=== PATIENT | male | born 1955 | race Caucasian/White ===

== ENCOUNTER 2022-07-11 13:49 | Outpatient (RCR) | payer OTHER, SELFPAY ==
--- NOTE | 2022-07-11 14:47 | PTOPEVAL1 ---
Assessment and note entered by Mason Butler Evaluation Information Assessment Status Evaluation Diagnosis s/p right shoulder arthroplasty Onset 05/16/22 Subjective Information Pt. reports that he was in a sling for 7 weeks following surgery. He reports that he removed the sling about 2 weeks ago. Pt. reports having no pain at rest. He does not slight pain with movement. Pt. reports that he is having difficulty with raising his arm. He states that prior to surgery he could only move the right arm slightly and would have to assist the arm on occasion. He reports that his goal is to be able to use the right arm to comb his hair and reach above his head. Reported Pain Level Pain Score 0: Self Report Assessment PT Clinical Summary Pt. is a 66 year old male approximately 2 months post right reverse shoulder arthroplasty. He presents with impaired u.e. strength, impaired ROM and pain. Continued treatment is indicated in order to improve these areas to allow the pt. to be able to utilize the right u.e. more effieicently with ADL performance. Plan of Care Interventions Electrical Stimulation,Hot Pack/Cold Pack,Manual Therapy,Therapeutic Activities,Therapeutic Exercise,Self-Care/Home Management PT Services Indicated Yes Treatment Frequency and 3x/week x 12 visits Duration These treatments will address the objective and functional deficits as defined above. The patient will be advanced safely and appropriately in order for the patient to progress towards his/her prior level of function. Additional exercises will be introduced and as well as a comprehensive home exercise program upon discharge, if needed, ?to ensure carryover of functional gains achieved in the clinic. This treatment plan has been reviewed and agreement upon by the patient.
--- NOTE | 2022-08-04 16:28 | PTOPPROG ---
Assessment and note entered by JT File, PT Evaluation Information Assessment Status Progress Diagnosis s/p right shoulder arthroplasty Onset 05/16/22 Subjective Information patient reports he no longer has pain in the R shoulder. however, he reports the shoulder continues to be weak and he is unable to lift the arm up away from his body. he reports he has not be able to shave due to the weakness. Assessment PT Clinical Summary mr. montejo presents to skilled PT services for his 10th skilled therapy visit this date. he presents today with continued deficits in R shoulde earlene dn strength. however, he is improved since his initial evaluation. due to complexity of his case, and expected longer than normal return to function times, it is in his benefit to continue skilled PT with focus on further aarom, arom, and strengthening to improve shoulder/UE function. as of this date, he has met goals for pain and HEP performance. he is progressing towards all other goals thus far. Plan of Care Interventions Manual Therapy,Neuro Re-education,Patient/ Caregiver Educati,Therapeutic Activities, Therapeutic Exercise PT Services Indicated Yes Treatment Frequency and continue skilled PT 1 more time this week, then 2x Duration weekly for 4 more visits (total of 5 visits after today) These treatments will address the objective and functional deficits as defined above. The patient will be advanced safely and appropriately in order for the patient to progress towards his/her prior level of function. Additional exercises will be introduced and as well as a comprehensive home exercise program upon discharge, if needed, ?to ensure carryover of functional gains achieved in the clinic. This treatment plan has been reviewed and agreement upon by the patient.
--- NOTE | 2022-08-19 16:01 | PTOPREEVAL ---
Assessment and note entered by JT File, PT Evaluation Information Assessment Status Re-evaluation Diagnosis s/p right shoulder arthroplasty Onset 05/16/22 Subjective Information patient reports he feels pretty good today. he reports no pain at rest in the R shoulder. he reports he is still unable to lift the R arm to use it for self care or activities at home, but reports his active mobility is improved. Reported Pain Level Pain Score 0: Self Report Assessment PT Clinical Summary mr. montejo presents to skilled PT services for continued weakness, decreased rom, and decreased functional use of the R UE following R TSA. he has made progress in arom and strength of the R shoulder, but continued to lack achievement of goals or improved functional use of the R arm at home. he would do well to continue skilled PT with focus on continued strengthening, rom, and functional reaching/lifting activities to improve his independence and performance with self care and ADL's. Plan of Care Interventions Manual Therapy,Neuro Re-education,Patient/ Caregiver Educati,Therapeutic Activities, Therapeutic Exercise PT Services Indicated Yes Treatment Frequency and continue skilled PT 2x weekly for 8 more visits Duration These treatments will address the objective and functional deficits as defined above. The patient will be advanced safely and appropriately in order for the patient to progress towards his/her prior level of function. Additional exercises will be introduced and as well as a comprehensive home exercise program upon discharge, if needed, ?to ensure carryover of functional gains achieved in the clinic. This treatment plan has been reviewed and agreement upon by the patient.
== END 2022-08-19 23:59 | disposition home or self-care (01) ==
LOC: CHSPT 13:49
DX: Z48.89 Encounter for other specified surgical aftercare (principal)
CPT/HCPCS: 97014; 97110; 97161; G0283

== ENCOUNTER 2023-06-21 08:40 | Emergency (ER) | payer MEDICARE, SELFPAY ==
[2023-06-21 08:40] VITALS: BP 147/103; PULSE 106; RESP 20; TEMP 37.1; O2SAT 97
[2023-06-21 08:56] VITALS: BP 138/102; PULSE 110; RESP 18; O2SAT 97
--- NOTE | 2023-06-21 09:14 | ED.MALEGU ---
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 -- Suprapubic pain/heaviness. No chills or rigors. -- He feels that the bladder is not being appropriately emptied by the Parker's catheter. A bladder scan revealed 51 cc of urine. Onset (ago): day(s) ( Started 1 day ago.) Duration: intermittent Location: abdomen ( Suprapubic region.) Radiation: abdomen Severity: moderate Quality: aching Relieving factors: none Exacerbating factors: none Associated symptoms: Reports denies other symptoms Related Data Allergies Allergy/AdvReac Type Severity Reaction Status Date / Time codeine Allergy Unknown Skin Verified 06/21/23 08:52 irritation Review of Systems Review of Systems: Blood pressure is stable. Temperature of 37.1?. All systems reviewed & are unremarkable except as noted in HPI and below Constitutional: Constitutional: Reports as per HPI and Reports no additional constitutional complaints Eyes: Eyes: Reports as per HPI and Reports no additional eye complaints ENT: Reports system reviewed and no additional complaints, except as documented Cardiovascular: Cardiovascular: Reports as per HPI and Reports no additional cardiovascular complaints Respiratory: Respiratory: Reports as per HPI and Reports no additional respiratory complaints Gastrointestinal: Gastrointestinal: Reports as per HPI and Reports no additional gastrointestinal complaints Genitourinary: Comments: Chronic for his catheter which pain on pavithra the bladder and possible retention of urine. Musculoskeletal: Comments: Chronic pain In multiple places Integumentary/Breasts: Skin/Breast: Reports system reviewed and no additional complaints, except as docu Neurologic: Comments: bilateral arm and leg weakness. Nonambulatory. Psychiatric: Psychiatric: Reports no additional psychiatric complaints Endocrine: Endocrine: Reports no additional endocrine complaints Hematologic/Lymphatic: Hematologic/Lymphatic: Reports no additional hematologic/lymphatic complaints Allergic/Immunologic: Allergic/Immunologic: Reports no additional allergic/immunologic complaints [facility] Past Medical History Medical History (Updated 06/21/23 @ 10:29 by Junaid Robles MD) Bipolar 1 disorder, depressed, mild Cervical myelopathy Dyslipidemia Hypothyroidism Lumbar stenosis Prostate cancer Family History Family History (Updated 09/14/18 @ 16:10 by DOCTOR UNKNOWN) Mother Diabetes mellitus Social History Social History Smoking status: Heavy tobacco smoker Alcohol intake: current Exam Const: General: cooperative and healthy appearing HENMT: Head: normal to inspection Ears: hearing grossly normal bilaterally Face/Nose/Sinus: Normal external nose present Face and sinus: normal facial exam Mouth: Yes Normal oral and palatal mucosa present, Yes lip normal and Yes tongue normal Throat: posterior oropharynx normal Eyes: General: appearance normal, both eyes and all related structures Conjunctivae: conjunctivae normal Sclera: sclerae normal Cornea: corneas normal Pupils: Equal, round and reactive pupils present EOM: EOMs intact bilaterally Neck: Neck: normal visual inspec
--- NOTE | 2023-06-21 09:33 | PC.NURSE ---
labs obtained by blood draw in foot. Patient had a lot of reconstructive surgery on arms, so he requested to have blood drawn from foot. ERP ok with draw site.
[2023-06-21 09:39] LABS: Appearance Urine Cloudy (Clear); Basophils Absolute Auto 0.01 K/mm3 (0.00-0.10); Basophils Percent Auto 0.1 % (0.0-1.0); Bilirubin Urine Negative (Negative); Blood Urine 3+ (Negative); Eosinophils Percent Auto 3.3 % (1.0-6.0); Glucose Urine UA Negative (Negative); Hematocrit 41.2 % (37.0-46.0); Hemoglobin 13.6 g/dL (12.4-15.3); Immature Granulocyte Absolute 0.05 K/mm3 (0.00-0.00); Immature Granulocyte Percent A 0.5 % (0.0-0.0); Ketones Urine 2+ (Negative); Leukocyte Esterase Ur 3+ LEU/UL (Negative); Lymphocytes Absolute Auto 0.16 K/mm3 (1.10-4.50); Lymphocytes Percent Auto 1.8 % (18.0-42.0); Mean Corpuscular Hemoglobin 30.9 pg (27.0-31.0); Mean Corpuscular Volume 93.6 fL (78.0-102.0); Mean Platelet Volume 9.5 fl (8.7-11.0); Monocytes Absolute Auto 0.47 K/mm3 (0.10-0.90); Monocytes Percent Auto 5.1 % (2.0-11.0); Neutrophils Absolute Auto 8.1 K/mm3 (1.7-7.2); Neutrophils Percent Auto 89.2 % (50.0-70.0); Nitrate Urine Positive (Negative); Platelet Count Result 180 K/mm3 (150-420); Protein Urine 2+ (Negative); Red Cell Distribution Width 13.7 % (11.6-14.4); Specific Grav Ur 1.025 (1.010-1.020); Urobilinogen Urine 0.2 mg/dL (0.2-1.0); White Blood Count 9.1 K/mm3 (4.8-10.8); pH Urine 5.5 (5.0-8.0)
[2023-06-21 09:55] LABS: Add Urine Microscopic? YES; Alanine Aminotransferase 34 U/L (16-63); Albumin Level 3.3 g/dL (3.4-5.0); Alkaline Phosphatase 110 U/L (46-116); Anion Gap 9 mmol/L (8-16); Aspartate Amino Transferase 20 U/L (15-37); Bacteria Urine 3+ /hpf; Bilirubin,Total 0.6 mg/dL (0.00-1.00); Blood Urea Nitrogen 13 mg/dL (7-18); Carbon Dioxide 28 mmol/L (21-32); Chloride 105 mmol/L (98-108); Color Urine Yellow (Yellow); Estimated CRCL calculation 86 ml/min; Estimated Glomerular Filt Rate > 60; Glucose 107 mg/dL (70-99); Osmolality Calculated 294 mOsm/kg (285-295); Potassium 3.5 mmol/L (3.5-5.1); Sodium 142 mmol/L (136-145); Squamous Epithelial Cell Urine Rare /hpf (Few); Total Protein 6.8 g/dL (6.4-8.2); WBC Urine >75 /hpf (0-3)
[2023-06-21 10:10] LABS: Lactic Acid Reflex 0.7 mmol/L (0.4-2.0)
[2023-06-21 10:58] VITALS: BP 121/71; PULSE 106; RESP 18; TEMP 36.6; O2SAT 98
--- NOTE | 2023-06-28 18:41 | PC.NURSE ---
urine culture reviewed. given to dr jarvis to review. augmentin rx given is resistant. awaiting new order.
--- NOTE | 2023-06-28 18:45 | PC.NURSE ---
call placed to [facility], new rx for KEFLEX 500MG X1 TAB TID FOR 10 DAYS.
--- NOTE | 2023-06-28 18:49 | PC.NURSE ---
PT NOTIFIED PER PHONE OF NEED TO CHANGE ANTIBIOTIC. SPOKE WITH PT MULTICRAFT OPERATOR YEIMY FERNANDO. VOICED UNDERSTANDING TO ELECTRIC DISTRIBUTION ENGINEER AT [facility]. OPEN TIL 8PM TONIGHT OR IN THE MORNING.
--- NOTE | 2023-07-02 13:59 | PC.NURSE ---
final urine culture report reviewed. gram negative bacilli isolated. pt prescribed augmentin and pyridium at discharge. erp dr giraldo reviewed and approved rx as appropriate. no change in plan of care.
== END 2023-06-21 11:00 | disposition home or self-care (01) ==
PROVIDERS: Emergency Provider Internal Medicine Critical Care Medicine
DX: N30.00 Acute cystitis without hematuria (principal); E78.5 Hyperlipidemia, unspecified; E03.9 Hypothyroidism, unspecified; F17.200 Nicotine dependence, unspecified, uncomplicated; Z85.46 Personal history of malignant neoplasm of prostate
CPT/HCPCS: 36415; 80053; 81001; 83605; 85025; 87077; 87086; 87088; 87186; 99283

== ENCOUNTER 2023-06-22 13:33 | Emergency (ER) | payer MEDICARE, SELFPAY ==
[2023-06-22 13:36] VITALS: BP 142/114; PULSE 93; TEMP 36.5; O2SAT 96
--- NOTE | 2023-06-22 13:58 | ED.MALEGU ---
HPI - Male Genitourinary General Chief complaint: Urogenital-Male Stated complaint: leaking catheter Time Seen by Provider: 06/22/23 13:55 Source: patient Mode of arrival: wheelchair History of Present Illness HPI Narrative: 67-year-old male presents with a history of prostate cancer with radiation treatments as a chronic Parker was seen here yesterday in and had a leaky catheter that was replaced and started on antibiotics. Patient presents again today with leaking catheter stating that there was not enough saline in the the balloon. Patient has a history of myelopathy and lumbar stenosis is in a wheelchair in being treated for prostate cancer. Currently on antibiotics with no fever chills no suprapubic tenderness no flank pain. Onset (ago): day(s) Duration: constant Related Data Allergies Allergy/AdvReac Type Severity Reaction Status Date / Time codeine Allergy Unknown Skin Verified 06/21/23 08:52 irritation Review of Systems Review of Systems: All systems reviewed & are unremarkable except as noted in HPI and below PMFSH Past Medical History Medical History Bipolar 1 disorder, depressed, mild Cervical myelopathy Dyslipidemia Hypothyroidism Lumbar stenosis Prostate cancer Family History Family History Mother Diabetes mellitus Social History Social History Smoking status: Heavy tobacco smoker Alcohol intake: current Exam Const: General: no acute distress Nutritional Appearance: well nourished Limitations: no limitations Neck: Neck: normal visual inspection Chest: Chest palpation & inspection: normal inspection of the chest Resp: Effort & Inspection: normal respiratory effort Auscultation: clear to auscultation bilaterally Cardio: Rate: regular rate Rhythm: regular rhythm GI: GI Palp: Yes Soft to palpation Auscultation: normal bowel sounds : Other: Has a Parker catheter that has been leaking around the insertion site and a full 15mL of saline was placed in the the balloon holding the catheter in place. Urinary Catheter: Urinary Catheter: patent and draining Back/Spine/Pelvis: Back: no CVA tenderness Skin: General skin exam: normal color Rashes: no rashes Neuro: General: patient oriented x3 Extrem: General: normal to inspection Psych: Mental Status: mental status grossly normal Affect: normal affect Course Course Emergency Course: Patient with a Parker catheter that is leaking around the insertion site and a full 15mL was placed in the balloon to help prevent any leakage, advised patient to follow with his primary our urologist if symptoms persist or worsen. Vital Signs Vital signs: Vital Signs Temperature 36.5 C 06/22/23 13:36 Pulse Rate 93 06/22/23 13:36 Blood Pressure 142/114 H 06/22/23 13:36 Pulse Oximetry 96 06/22/23 13:36 Oxygen Delivery Room Air 06/22/23 13:36 Temperature 36.5 C 06/22/23 13:36 Pulse Rate 93 06/22/23 13:36 Blood Pressure 142/114 H 06/22/23 13:36 Pulse Oximetry 96 06/22/23 13:36 Oxygen Delivery Room Air 06/22/23 13:36 Critical Care Time Critical Care Time Critical Care Time: No Discharge Plan Discharge Clinical Impression: Complication of Parker catheter Patient Disposition: Home, Self-Care Condition: Stable Instructions: Antibiotic Form, Parker Catheter Placement and Care (ED) Additional Instructions: advised patient if symptoms persist should follow with his primary at the [place]. Prescriptions: No Action amoxicillin-pot clavulanate 875-125 mg tablet 1 tablet PO Q12H Qty: 14 0RF phenazopyridine [Pyridium] 200 mg tablet 200 mg PO TID PRN (Reason: pain) Qty: 14 0RF Follow-up/Referrals: UNKNOWN,DOCTOR [Primary Care Provider] - Time of Disposition: 14:04
--- NOTE | 2023-06-22 14:01 | PC.NURSE ---
pt declined changing fraser, I just need more saline in the balloon . balloon deflated with 10ml. replaced with 15 ml of saline. pt informed should not have to push and bear down to urinate. pt states that is when it is leaking. explained bulb can only be inflated so much. if returns again will need to have new cath inserted. pt states has been using same size 16fr for the past year with no issues.
[2023-06-22 14:07] VITALS: BP 125/85; PULSE 78; RESP 20; O2SAT 98
== END 2023-06-22 14:09 | disposition home or self-care (01) ==
LOC: CHSED 14:06
PROVIDERS: Emergency Provider Emergency Medicine
DX: T83.031A Leakage of indwelling urethral catheter, initial encounter (principal); C61 Malignant neoplasm of prostate; E78.5 Hyperlipidemia, unspecified; E03.9 Hypothyroidism, unspecified; F17.200 Nicotine dependence, unspecified, uncomplicated
CPT/HCPCS: 99282

== ENCOUNTER 2023-08-08 22:18 | Emergency (ER) | payer MEDICARE, SELFPAY ==
--- NOTE | 2023-08-08 22:58 | PC.NURSE ---
called x2 for triage no answer.
== END 2023-08-08 23:59 | disposition left against medical advice (07) ==
DX: Z53.21 Procedure and treatment not carried out due to patient leaving prior to being seen by health care provider (principal)
CPT/HCPCS: 99199

== ENCOUNTER 2023-08-08 23:11 | Emergency (ER) | payer MEDICARE, SELFPAY ==
[2023-08-08 23:16] VITALS: BP 118/67; PULSE 82; RESP 18; TEMP 36.6; O2SAT 97
[2023-08-08] MEDS: ORPHENADRINE CITRATE 30 MG/ML 2 ML VIAL 60 MG IM (23:36)
--- NOTE | 2023-08-09 00:10 | ED.GENADULT ---
HPI - General Adult General Chief complaint: Urogenital-Male Stated complaint: bladder spasms Time Seen by Provider: 08/09/23 00:02 Source: patient and family Mode of arrival: ambulatory Limitations: no limitations History of Present Illness HPI narrative: patient is a 68-year-old male with bladder spasms this evening. He had radiation in the past day and tends to have spasms. He has metastatic prostate cancer. Onset (ago): hour(s) Location: pelvis Radiation: non-radiation Severity: moderate Severity scale (1-10): 6 Quality: sharp Pain Consistency: intermittent Relieving factors: none Exacerbating factors: none Associated symptoms: denies other symptoms Treatments prior to arrival: none Related Data Home Medications Medication Instructions Recorded Confirmed flavoxate 100 mg tablet 100 mg PO BID 08/08/23 08/08/23 Allergies Allergy/AdvReac Type Severity Reaction Status Date / Time codeine Allergy Unknown Skin Verified 08/08/23 23:41 irritation Review of Systems Review of Systems: All systems reviewed & are unremarkable except as noted in HPI and below Constitutional: Constitutional: Reports no additional constitutional complaints Eyes: Eyes: Reports no additional eye complaints ENT: Reports system reviewed and no additional complaints, except as documented Cardiovascular: Cardiovascular: Reports no additional cardiovascular complaints Respiratory: Respiratory: Reports no additional respiratory complaints Gastrointestinal: Gastrointestinal: Reports no additional gastrointestinal complaints Genitourinary: Genitourinary: Reports no additional male genitourinary complaints Musculoskeletal: Musculoskeletal: Reports no additional musculoskeletal complaints Integumentary/Breasts: Skin/Breast: Reports system reviewed and no additional complaints, except as docu Neurologic: Reports system reviewed and no additional complaints, except as documented Psychiatric: Psychiatric: Reports no additional psychiatric complaints Endocrine: Endocrine: Reports no additional endocrine complaints Hematologic/Lymphatic: Hematologic/Lymphatic: Reports no additional hematologic/lymphatic complaints Allergic/Immunologic: Allergic/Immunologic: Reports no additional allergic/immunologic complaints PMFSH Past Medical History Medical History Bipolar 1 disorder, depressed, mild Cervical myelopathy Dyslipidemia Hypothyroidism Lumbar stenosis Prostate cancer Family History Family History Mother Diabetes mellitus Social History Social History Smoking status: Heavy tobacco smoker Alcohol intake: current Exam Const: General: healthy appearing Nutritional Appearance: well nourished Orientation/consciousness: patient oriented x3 HENMT: Head: normal to inspection Ears: external ears normal Face/Nose/Sinus: Normal external nose present Eyes: Conjunctivae: conjunctivae normal Pupils: Equal, round and reactive pupils present EOM: EOMs intact bilaterally Neck: Neck: normal visual inspection Chest: Chest palpation & inspection: normal inspection of the chest Resp: Effort & Inspection: normal respiratory effort Auscultation: clear to auscultation bilaterally, no crackles and no rales Cardio: Rate: regular rate Rhythm: regular rhythm Heart sounds: no murmurs GI: Inspection: non-distended GI Palp: Yes Soft to palpation, No Tenderness to palpation present (GI), No Guarding due to palpation present (GI), No Rigid due to palpation and No Hernia present Auscultation: normal bowel sounds : General: Yes bladder normal to palpation Back/Spine/Pelvis: Back: no CVA tenderness Skin: General skin exam: normal color Rashes: no rashes Wounds: no wounds Neuro: General: patient oriented x3 Cranial nerves: Yes Nystagmus not present Spe
== END 2023-08-09 00:40 | disposition home or self-care (01) ==
LOC: CHSED 08-09 00:32
PROVIDERS: Emergency Provider Emergency Medicine
DX: N32.89 Other specified disorders of bladder (principal); E03.9 Hypothyroidism, unspecified; E78.5 Hyperlipidemia, unspecified; F17.210 Nicotine dependence, cigarettes, uncomplicated; Z85.46 Personal history of malignant neoplasm of prostate
CPT/HCPCS: 96372; 99283; J2360

== ENCOUNTER 2023-08-21 16:20 | Emergency (ER) | payer OTHER, SELFPAY ==
[2023-08-21 16:50] VITALS: BP 154/98; PULSE 88; RESP 18; TEMP 36.7; O2SAT 97
--- NOTE | 2023-08-21 17:13 | ED.MALEGU ---
HPI - Male Genitourinary General Chief complaint: Urogenital-Male Stated complaint: urinary catheter leaking since last night Time Seen by Provider: 08/21/23 16:28 History of Present Illness HPI Narrative: Patient is a 68-year-old male bipolar disorder, hypothyroidism, metastatic prostate CA here with concern for leaking fraser catheter and bladder spasms. notes that he has had a chronic indwelling Fraser for quite some time, typically gets exchanged about every 1 month. He notes that it is a 16 Amharic and was last changed about 2 weeks ago. He notes that he stopped having good outflow from his catheter yesterday and today was having some leaking around the outside of his Fraser catheter. He does note he has had an issue with sediment blocking his catheters in the past. He additionally endorses some suprapubic fullness as well as bladder spasms. He struggled with bladder spasms for a while and attempted multiple different medications through the emergency department in the past which have not helped him. He notes he has been attempting [facility] however it is very difficult to get in for an appointment. He notes that he is currently on antibiotics for a UTI. He is currently on an unknown antibiotic for a UTI. He denies any fever or chills. He denies any cough, congestion. Related Data Home Medications Medication Instructions Recorded Confirmed flavoxate 100 mg tablet 100 mg PO BID 08/08/23 08/08/23 Allergies Allergy/AdvReac Type Severity Reaction Status Date / Time codeine Allergy Unknown Skin Verified 08/21/23 17:49 irritation Review of Systems Review of Systems: All systems reviewed & are unremarkable except as noted in HPI and below PMFSH Past Medical History Medical History Bipolar 1 disorder, depressed, mild Cervical myelopathy Dyslipidemia Hypothyroidism Lumbar stenosis Prostate cancer Family History Family History Mother Diabetes mellitus Social History Social History Smoking status: Heavy tobacco smoker Alcohol intake: current Exam Narrative: GENERAL: Well-appearing, well-nourished, and in no acute distress. HEAD: Normocephalic, atraumatic. EYES: PERRLA and EOMI. ENT: Nares clear. Mucous membranes moist. NECK: Supple. CHEST: Clear to auscultation. No respiratory distress. HEART: Regular rate and rhythm. Normal peripheral pulses. ABDOMEN: Soft, nontender, nondistended. EXTREMITIES: Contracture deformity of the bilateral lower extremities and upper extremities with muscle wasting present. SKIN: Warm, dry, no rash. NEURO: No focal deficits. Alert and oriented x3. PSYCH: Normal mood and affect. Course Course Emergency Course: Chart review performed. He had an ED visit here on 08/09/23 for bladder spasms. They note history of metastatic prostate cancer receiving radiation. He was started on Pyridium and flavoxate at discharge. Triage vitals normal. Catheter exchanged by nursing staff. Awaiting UA. Will give dose of tylenol and oxybutynin. UA consistent with actively treated UTI, do not believe further/additional antibiotics are required. Will start on oxybutynin and advise close PCP and urology follow up. Return if symptoms worsen. The results of pertinent diagnostic studies and exam findings were discussed. The patient?s provisional diagnosis and plan of care were discussed with the patient and present family. The patient and/or present family expressed understanding of the diagnosis and plan. The nurse was instructed to provide written instructions and appropriate follow-up information. The patient understands their need and responsibility to obtain additional follow-up as instructed. The risks of medications administered and prescribed were discussed with the patient and fa
[2023-08-21] MEDS: ACETAMINOPHEN 500 MG TABLET 1000 MG PO (18:03)
[2023-08-21] MEDS: PHENAZOPYRIDINE HCL 100 MG TABLET 200 MG PO (18:31)
[2023-08-21 18:33] LABS: Appearance Urine Clear (Clear); Bilirubin Urine 1+ (Negative); Blood Urine 3+ (Negative); Color Urine Yellow (Yellow); Glucose Urine UA Negative (Negative); Ketones Urine Trace (Negative); Leukocyte Esterase Ur Trace LEU/UL (Negative); Nitrate Urine Negative (Negative); Protein Urine 3+ (Negative); Specific Grav Ur >= 1.030 (1.010-1.020)
[2023-08-21 18:41] LABS: Add Urine Microscopic? YES
[2023-08-21 18:42] LABS: Bacteria Urine 1+ /hpf; RBC Urine >75 /hpf (0-2); Squamous Epithelial Cell Urine Occasional /hpf (Few)
[2023-08-21 18:45] VITALS: BP 119/75; PULSE 62; RESP 14; TEMP 36.7; O2SAT 97
[2023-08-21 19:05] VITALS: BP 142/89; PULSE 68; RESP 20; O2SAT 97
== END 2023-08-21 19:10 | disposition home or self-care (01) ==
PROVIDERS: Emergency Provider Student in an Organized Health Care Education/Training Program
DX: N32.89 Other specified disorders of bladder (principal); T85.9XXA Unspecified complication of internal prosthetic device, implant and graft, initial encounter; E03.9 Hypothyroidism, unspecified; E78.5 Hyperlipidemia, unspecified; F17.200 Nicotine dependence, unspecified, uncomplicated; Z85.46 Personal history of malignant neoplasm of prostate
CPT/HCPCS: 81001; 99283; A9270

== ENCOUNTER 2024-10-17 18:13 | Inpatient (IN) | payer OTHER, SELFPAY ==
--- NOTE | ~2024-10-17 | XR_ITS ---
CHEST RADIOGRAPH CLINICAL HISTORY: cough . COMPARISON: 01/22/2016 TECHNIQUE: Single portable view of the chest. FINDINGS Elevation of the left hemidiaphragm with adjacent compressive atelectasis. The remainder of the lungs are clear. Cardiomediastinal silhouette is partially obscured. IMPRESSION: No focal infiltrate or effusion. Reviewed, dictated and finalized at location A. L DIGGER
[2024-10-17 18:14] VITALS: BP 152/75; PULSE 107; RESP 20; TEMP 37.2; O2SAT 95
--- NOTE | 2024-10-17 18:19 | PC.NURSE ---
Covid culture sent to lab
--- NOTE | 2024-10-17 18:20 | ECG_ITS ---
Test Date: 2024-10-17 18:53:33 Measurements Intervals [place] Rate: 103 P: 0 [place]: 0 QRS: -18 QRSD: 91 T: 74 QT: 322 QTc: 423 Interpretive Statements UNCERTAIN REGULAR RHYTHM BASELINE ARTIFACT LIMITS INTERPRETATION No previous ECG available for comparison Electronically Signed On 10-18-2024 16:18:07 PANTRY STEWARD/STEWARDESS by Dean Viramontes M.D.
--- NOTE | 2024-10-17 18:21 | ED.GENADULT ---
HPI - General Adult General Chief complaint: Upper Respiratory Infection Stated complaint: congestion, cough Time Seen by Provider: 10/17/24 18:16 History of Present Illness HPI narrative: Emanuel is a 69M with a PMH of cervical myelopathy presented to the ED with 3 days of a worsening cough, dyspnea and weakness. No CP, lightheadedness or vomiting reported. Related Data Home Medications ?Medication ?Instructions ?Recorded ?Confirmed ?Last Taken ?Type flavoxate 100 mg tablet 100 mg PO BID 08/08/23 10/18/24 Unknown History Allergies Allergy/AdvReac Type Severity Reaction Status Date / Time codeine Allergy Unknown Skin Verified 10/17/24 18:22 irritation Review of Systems Review of Systems: All systems reviewed & are unremarkable except as noted in HPI and below PMFSH Past Medical History Medical History Prostate cancer Lumbar stenosis Cervical myelopathy Bipolar 1 disorder, depressed, mild Dyslipidemia Hypothyroidism Family History Family History Mother Diabetes mellitus Social History Social History Smoking status: Never smoker Alcohol intake: current Drinks per week: 6 Substance use: current Substance use type: marijuana Last use: 10/26/24 Do You Feel Safe in your Home?: Yes Lack of Transportation: No Lack of Food: Never True Current Housing: I Have Housing Concerned About Future Housing: No Difficulty Paying Gas/Electric Bills: No Difficulty Paying for Meds: No Currently Unemployed: No Education: High School Diploma/GED Difficulty w/ Childcare or Family Care: No Spiritual care concerns: No Exam Const: General: cooperative, healthy appearing, comfortable, no acute distress, well developed, alert, awake and Physically active Orientation/consciousness: oriented to person, oriented to place and oriented to time Other: in a power wheelchair HENMT: Head: normal to inspection, normocephalic and atraumatic Ears: hearing grossly normal bilaterally and external ears normal Face/Nose/Sinus: Normal external nose present Eyes: General: appearance normal, both eyes and all related structures Periorbital: periorbital findings normal Sclera: sclerae normal Pupils: Equal, round and reactive pupils present Neck: Neck: normal visual inspection Chest: Chest palpation & inspection: normal inspection of the chest Resp: Effort & Inspection: normal respiratory effort, able to speak in complete sentences and no respiratory distress Other: coughing regularly. Crackles throughout all lung nicholas Cardio: Jugular venous distension: no JVD Rate: regular rate Rhythm: regular rhythm GI: Inspection: normal to inspection GI Palp: Yes Soft to palpation Auscultation: normal bowel sounds Skin: General skin exam: normal color and no rashes or lesions noted Neuro: General: oriented to person, oriented to place and oriented to time Cranial nerves: Yes Equal, round and reactive pupils present Extrem: General: normal to inspection Course Course Emergency Course: Ordered, labs, CXR and EKG CHEST RADIOGRAPH CLINICAL HISTORY: cough . COMPARISON: 01/22/2016 TECHNIQUE: Single portable view of the chest. FINDINGS Elevation of the left hemidiaphragm with adjacent compressive atelectasis. The remainder of the lungs are clear. Cardiomediastinal silhouette is partially obscured. IMPRESSION: No focal infiltrate or effusion. Labs showed significant leukocytosis, and unremarkable chemistries Ordered breathing treatment, levofloxacin and prednisone. DDx includes COPD vs pneumonia vs CHF vs other. But given the low BNP and CXR finding COPD is most likely. Will treat with levofloxacin and prednisone. At the time of discharge he was found to have spiked a fever up to 101, be more tachycardic. This with his his WBC count was concerning for sepsis. Blood cultures were ordered but after abx were given as he originally did not meet criteria. Vital Signs Vital signs: Vital Signs Temperature 98.9 F 10/17/24 18:14 Pulse Rate 107 H 10/17/24 18:14 Respiratory Rate 20 10/17/24 18:14 Blood Pressure 152/75 H 10/17/24 18:14 Pulse Oximetry 95 10/17/24 18:14 Oxygen Delivery Room Air 10/17/24 18:14 Temperature 97.4 F L 10/18/24 04:00 Pulse Rate 100 10/18/24 04:00 Respiratory Rate 18 10/18/24 04:00 Blood Pressure 122/84 10/18/24 04:00 Pulse Oximetry 94 10/18/24 04:00 Oxygen Delivery Room Air 10/18/24 04:00 Medical Decision Making Vital Signs Vital Signs: Vital Signs Temperature 98.9 F 10/17/24 18:14 Pulse Rate 107 H 10/17/24 18:14 Respiratory Rate 20 10/17/24 18:14 Blood Pressure 152/75 H 10/17/24 18:14 Pulse Oximetry 95 10/17/24 18:14 Oxygen Delivery Room Air 10/17/24 18:14 Temperature 97.4 F L 10/18/24 04:00 Pulse Rate 100 10/18/24 04:00 Respiratory Rate 18 10/18/24 04:00 Blood Pressure 122/84 10/18/24 04:00 Pulse Oximetry 94 10/18/24 04:00 Oxygen Delivery Room Air 10/18/24 04:00 Lab Data 10/18/24 05:43 10/18/24 05:43 Labs: Lab Results 10/17/24 Range/Units 18:33 WBC 15.5 H (4.8-10.8) K/mm3 RBC 4.46 L (4.70-6.10) M/mm3 Hgb 13.9 (12.4-15.3) g/dL Hct 42.4 (37.0-46.0) % MCV 95.1 (78.0-102.0) fL MCH 31.2 H (27.0-31.0) pg MCHC 32.8 (32-36) g/dL RDW 14.1 (11.6-14.4) % Plt Count 265 (150-420) K/mm3 MPV 9.4 (8.7-11.0) fl Immature Gran % (Auto) 0.6 H (0.0-0.0) % Neut % (Auto) 86.6 H (50.0-70.0) % Lymph % (Auto) 4.2 L (18.0-42.0) % [place] % (Auto) 7.6 (2.0-11.0) % Eos % (Auto) 0.8 L (1.0-6.0) % Baso % (Auto) 0.2 (0.0-1.0) % Lymph # (Auto) 0.65 L (1.10-4.50) K/mm3 [place] # (Auto) 1.18 H (0.10-0.90) K/mm3 Eos # (Auto) 0.12 (0.02-0.50) K/mm3 Baso # (Auto) 0.03 (0.00-0.10) K/mm3 Abs Immat Gran (auto) 0.09 H (0.00-0.00) K/mm3 Absolute Neuts (auto) 13.39 H (1.70-7.20) K/mm3 Absolute Nucleated RBC 0.00 (0.00-0.00) K/mm3 Nucleated RBC % 0.0 (0-0.0) % PT 11.0 (9.50-12.1) Seconds INR 1.0 Sodium 139 (136-145) mmol/L Potassium 3.9 (3.5-5.1) mmol/L Chloride 100 (98-108) mmol/L Carbon Dioxide 25 (21-32) mmol/L Anion Gap 14 H (4-12) mmol/L BUN 13 (7-18) mg/dL Creatinine 1.30 (0.70-1.30) mg/dL Estim Creat Clear Calc 46 ml/min Estimated GFR 54 L (59 - ) Glucose 120 H (70-99) mg/dL Calculated Osmolality 289 (285-295) mOsm/kg Calcium 9.7 (8.5-10.1) mg/dL Magnesium 1.9 (1.8-2.4) mg/dL Total Bilirubin 1.0 (0.00-1.00) mg/dL AST 19 (15-37) U/L ALT 29 (16-63) U/L Alkaline Phosphatase 125 H (46-116) U/L Troponin I 7.6 (0.00-60.4) ng/L NT-Pro-B Natriuret Pep 130 H (0-125) pg/mL Total Protein 8.2 (6.4-8.2) g/dL Albumin 3.6 (3.4-5.0) g/dL Influenza A (RT-PCR) Negative (Negative) Influenza B (RT-PCR) Negative (Negative) RSV (RT-PCR) Negative (Negative) SARS-CoV-2 RNA (RT-PCR) Negative (Negative) Discharge Plan Discharge Clinical Impression: COPD with acute exacerbation, Sepsis Patient Disposition: Acute [facility] Condition: Serious
[2024-10-17 18:49] LABS: Basophils Absolute Auto 0.03 K/mm3 (0.00-0.10); Basophils Percent Auto 0.2 % (0.0-1.0); Eosinophils Absolute Auto 0.12 K/mm3 (0.02-0.50); Eosinophils Percent Auto 0.8 % (1.0-6.0); Hematocrit 42.4 % (37.0-46.0); Hemoglobin 13.9 g/dL (12.4-15.3); Immature Granulocyte Absolute 0.09 K/mm3 (0.00-0.00); Immature Granulocyte Percent A 0.6 % (0.0-0.0); Lymphocytes Absolute Auto 0.65 K/mm3 (1.10-4.50); Lymphocytes Percent Auto 4.2 % (18.0-42.0); Mean Corpuscular HGB Conc 32.8 g/dL (32-36); Mean Corpuscular Hemoglobin 31.2 pg (27.0-31.0); Mean Corpuscular Volume 95.1 fL (78.0-102.0); Mean Platelet Volume 9.4 fl (8.7-11.0); Monocytes Absolute Auto 1.18 K/mm3 (0.10-0.90); Monocytes Percent Auto 7.6 % (2.0-11.0); Neutrophils Absolute Auto 13.39 K/mm3 (1.70-7.20); Neutrophils Percent Auto 86.6 % (50.0-70.0); Platelet Count Result 265 K/mm3 (150-420); Red Blood Count 4.46 M/mm3 (4.70-6.10); Red Cell Distribution Width 14.1 % (11.6-14.4); White Blood Count 15.5 K/mm3 (4.8-10.8)
[2024-10-17 19:01] LABS: Influenza A QL RT-PCR Negative (Negative); Influenza B QL RT-PCR Negative (Negative); RSV RNA, RT-PCR Negative (Negative); SARS-CoV-2 RNA PCR Negative (Negative)
[2024-10-17 19:13] LABS: Alanine Aminotransferase 29 U/L (16-63); Albumin Level 3.6 g/dL (3.4-5.0); Alkaline Phosphatase 125 U/L (46-116); Anion Gap 14 mmol/L (4-12); Aspartate Amino Transferase 19 U/L (15-37); Blood Urea Nitrogen 13 mg/dL (7-18); Calcium 9.7 mg/dL (8.5-10.1); Carbon Dioxide 25 mmol/L (21-32); Chloride 100 mmol/L (98-108); Estimated CRCL calculation 46 ml/min; Estimated Glomerular Filt Rate 54; Glucose 120 mg/dL (70-99); Magnesium 1.9 mg/dL (1.8-2.4); NT Pro B Type Natriuretic Pept 130 pg/mL (0-125); Osmolality Calculated 289 mOsm/kg (285-295); Potassium 3.9 mmol/L (3.5-5.1); Sodium 139 mmol/L (136-145); Total Protein 8.2 g/dL (6.4-8.2); Troponin I 7.6 ng/L (0.00-60.4)
[2024-10-17] MEDS: levoFLOXacin TAB 500 MG, levoFLOXacin TAB 250 MG 750 MG PO (19:36)
[2024-10-17] MEDS: predniSONE 20 MG TABLET 40 MG PO (19:36)
[2024-10-17] MEDS: IPRATROPIUM 0.5 MG/ALBUTEROL SULFATE 2.5 MG AMPUL.NEB 3 ML INHALATION (19:42)
[2024-10-17 19:52] VITALS: PULSE 90; RESP 20; O2SAT 96
[2024-10-17 20:17] VITALS: BP 125/44; PULSE 122; RESP 20; TEMP 39.4; O2SAT 96
[2024-10-17] MEDS: ACETAMINOPHEN 325 MG TABLET 650 MG PO (21:16)
[2024-10-17] MEDS: SODIUM CHLORIDE 0.9% IV 1,000 ML 999 ML IV CONT (21:18)
[2024-10-17] MEDS: PIPERACILLN/TAZ 3.375GM/NS50ML 3.375 GM/50 ML BAG IVPB (21:19)
[2024-10-17 21:45] VITALS: BMI 26.9
[2024-10-17] MEDS: SODIUM CHLORIDE 0.9% IV 1,000 ML 100 ML IV CONT (22:14)
[2024-10-17] MEDS: VANCOMYCIN 1,250 MG/NS 250 ML 1,250 MG/250 ML BAG 166.67 MG IVPB (22:14)
[2024-10-17 22:15] VITALS: TEMP 37.9
[2024-10-17 22:30] VITALS: PULSE 113; RESP 18; O2SAT 94
--- NOTE | 2024-10-17 22:35 | ADMGEN ---
This patient, Emanuel Brower, was admitted to 2nd Floor Room 226-1. Patient/family oriented to hospital policies and general routines including ID bracelet, bed and alarms, visiting hours, pain management, procedures, bathroom and other care routines, personal items, smoking policy, room service/diet, and visiting hours. Information on how to activate the Rapid Response Team has been discussed. Patient/Family are encouraged to report perceived risks to care and to ask questions if they do not understand what they are told or what they should do.
[2024-10-17 22:46] VITALS: PULSE 113; RESP 18; O2SAT 94
[2024-10-17 23:19] LABS: Add Urine Microscopic? YES; Appearance Urine Clear (Clear); Bilirubin Urine Negative (Negative); Blood Urine Trace-intact (Negative); Color Urine Light Yellow (Yellow); Glucose Urine UA Negative (Negative); Ketones Urine Negative (Negative); Leukocyte Esterase Ur Trace (Negative); Nitrate Urine Negative (Negative); Protein Urine Negative (Negative); Specific Grav Ur <= 1.005 (1.010-1.020); Urobilinogen Urine 0.2 mg/dL (0.2-1.0)
[2024-10-17] MEDS: VANCOMYCIN 1,000 MG/NS 250 ML 1,000 MG/250 ML BAG 250 MG IVPB (23:21)
[2024-10-17 23:33] LABS: Amorphous Sediment Urine Moderate; Bacteria Urine 1+ /hpf; Squamous Epithelial Cell Urine None seen /hpf (Few); WBC Urine 0-3 /hpf (0-3)
[2024-10-18] VITALS (10 sets, daily range): BP systolic 104–130; BP diastolic 63–84; PULSE 87–113; RESP 14–20; TEMP 36.3–37.9; O2SAT 94–98
[2024-10-18] MEDS: SODIUM CHLORIDE 0.9% IV 1,000 ML 999 ML IV CONT (00:24)
[2024-10-18 05:48] LABS: Basophils Absolute Auto 0.01 K/mm3 (0.00-0.10); Basophils Percent Auto 0.1 % (0.0-1.0); Hematocrit 35.1 % (37.0-46.0); Hemoglobin 11.5 g/dL (12.4-15.3); Immature Granulocyte Absolute 0.15 K/mm3 (0.00-0.00); Lymphocytes Absolute Auto 0.66 K/mm3 (1.10-4.50); Lymphocytes Percent Auto 4.4 % (18.0-42.0); Mean Corpuscular HGB Conc 32.8 g/dL (32-36); Mean Corpuscular Hemoglobin 31.7 pg (27.0-31.0); Mean Corpuscular Volume 96.7 fL (78.0-102.0); Mean Platelet Volume 9.3 fl (8.7-11.0); Monocytes Absolute Auto 0.75 K/mm3 (0.10-0.90); Neutrophils Absolute Auto 13.45 K/mm3 (1.70-7.20); Neutrophils Percent Auto 89.5 % (50.0-70.0); Platelet Count Result 230 K/mm3 (150-420); Red Blood Count 3.63 M/mm3 (4.70-6.10); Red Cell Distribution Width 14.2 % (11.6-14.4)
[2024-10-18 05:58] LABS: Anion Gap 9 mmol/L (4-12); Blood Urea Nitrogen 10 mg/dL (7-18); Carbon Dioxide 23 mmol/L (21-32); Chloride 111 mmol/L (98-108); Estimated CRCL calculation 66 ml/min; Estimated Glomerular Filt Rate > 60; Glucose 136 mg/dL (70-99); Osmolality Calculated 297 mOsm/kg (285-295); Potassium 3.2 mmol/L (3.5-5.1); Sodium 143 mmol/L (136-145)
--- NOTE | 2024-10-18 09:00 | PC.NURSE ---
Spoke with Emanuel Brower r/t favoxate, orphnadrine citrate, he indicates he I'm still taking these . Spoke with him r/t oxybutin, he indicates im not sure, maybe , and lastely inquired about Pyridium in which he indicated No, i dont take that.
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
[2024-10-18 11:01] LABS: Thyroid Stimulating Hormone 1.14 uIU/mL (0.36-3.74)
[2024-10-18 11:03] LABS: CRP 16.9 mg/dL (0.0-0.9)
[2024-10-18] MEDS: ENOXAPARIN 40 MG/0.4 ML SYRINGE SUB-Q (11:12)
[2024-10-18] MEDS: SODIUM CHLORIDE 0.9% IV 1,000 ML 100 ML IV CONT ×2 (11:12→20:39)
[2024-10-18] MEDS: oxyBUTYnin CHLORIDE 5 MG TABLET PO ×2 (11:13→17:00)
[2024-10-18 11:39] LABS: Erythrocyte Sedimentation Rate 46 mm/hr (0-20)
[2024-10-18] MEDS: levoFLOXacin TAB 500 MG, levoFLOXacin TAB 250 MG 750 MG PO (13:06)
[2024-10-18] MEDS: POTASSIUM CHLORIDE 20 MEQ ER TABLET 40 MEQ PO (13:06)
[2024-10-18] MEDS: methylPREDNISolone SOD SUCC 125 MG VIAL 80 MG IV PUSH (13:06)
--- NOTE | 2024-10-18 14:04 | PC.NURSE ---
lab notified to add urine culture to ua
[2024-10-18] MEDS: MAG HYDROX/AL HYDROX/SIMETH 30 ML UDC PO (17:00)
[2024-10-18] MEDS: IPRATROPIUM 0.5 MG/ALBUTEROL SULFATE 2.5 MG AMPUL.NEB 3 ML INHALATION (17:04)
[2024-10-18 18:32] LABS: MRSA (PCR) NOT DETECTED (NOT DETECTE)
[2024-10-18] MEDS: methylPREDNISolone SOD SUCC 40 MG VIAL IV PUSH (20:37)
[2024-10-18] MEDS: guaiFENesin 12 HR 600 MG TABCR PO (20:37)
[2024-10-18] MEDS: HYDROcodone/acetaminophen (*CRX) 5-325 MG TABLET 1 TAB PO (22:03)
[2024-10-19] VITALS (11 sets, daily range): BP systolic 98–125; BP diastolic 58–66; PULSE 93–109; RESP 14–20; TEMP 37–37.2; O2SAT 92–97
[2024-10-19] MEDS: IPRATROPIUM 0.5 MG/ALBUTEROL SULFATE 2.5 MG AMPUL.NEB 3 ML INHALATION ×4 (00:25→18:10)
[2024-10-19 05:58] LABS: Basophils Absolute Auto 0.02 K/mm3 (0.00-0.10); Basophils Percent Auto 0.2 % (0.0-1.0); Hematocrit 31.9 % (37.0-46.0); Hemoglobin 10.5 g/dL (12.4-15.3); Immature Granulocyte Percent A 0.8 % (0.0-0.0); Lymphocytes Absolute Auto 0.47 K/mm3 (1.10-4.50); Mean Corpuscular HGB Conc 32.9 g/dL (32-36); Mean Corpuscular Hemoglobin 31.3 pg (27.0-31.0); Mean Corpuscular Volume 94.9 fL (78.0-102.0); Mean Platelet Volume 9.4 fl (8.7-11.0); Monocytes Absolute Auto 0.55 K/mm3 (0.10-0.90); Monocytes Percent Auto 4.7 % (2.0-11.0); Neutrophils Absolute Auto 10.63 K/mm3 (1.70-7.20); Neutrophils Percent Auto 90.3 % (50.0-70.0); Platelet Count Result 236 K/mm3 (150-420); Red Blood Count 3.36 M/mm3 (4.70-6.10); Red Cell Distribution Width 14.3 % (11.6-14.4); White Blood Count 11.8 K/mm3 (4.8-10.8)
[2024-10-19 06:22] LABS: Alanine Aminotransferase 30 U/L (16-63); Albumin Level 2.7 g/dL (3.4-5.0); Alkaline Phosphatase 86 U/L (46-116); Anion Gap 13 mmol/L (4-12); Aspartate Amino Transferase 17 U/L (15-37); Bilirubin,Total 0.3 mg/dL (0.00-1.00); Blood Urea Nitrogen 10 mg/dL (7-18); Calcium 8.4 mg/dL (8.5-10.1); Carbon Dioxide 23 mmol/L (21-32); Chloride 107 mmol/L (98-108); Estimated CRCL calculation 63 ml/min; Estimated Glomerular Filt Rate > 60; Glucose 164 mg/dL (70-99); Osmolality Calculated 299 mOsm/kg (285-295); Potassium 3.1 mmol/L (3.5-5.1); Sodium 143 mmol/L (136-145); Total Protein 6.5 g/dL (6.4-8.2)
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
[2024-10-19] MEDS: methylPREDNISolone SOD SUCC 40 MG VIAL IV PUSH (09:27)
[2024-10-19] MEDS: oxyBUTYnin CHLORIDE 5 MG TABLET PO ×2 (09:27→18:10)
[2024-10-19] MEDS: guaiFENesin 12 HR 600 MG TABCR PO ×2 (09:27→21:58)
[2024-10-19] MEDS: ENOXAPARIN 40 MG/0.4 ML SYRINGE SUB-Q (09:32)
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
[2024-10-19 10:40] LABS: Magnesium 1.8 mg/dL (1.8-2.4)
[2024-10-19] MEDS: predniSONE 20 MG TABLET 40 MG PO (10:51)
[2024-10-19] MEDS: levoFLOXacin TAB 500 MG, levoFLOXacin TAB 250 MG 750 MG PO (18:10)
[2024-10-20] VITALS (8 sets, daily range): BP systolic 110–145; BP diastolic 64–72; PULSE 96–110; RESP 14–20; TEMP 36.2–37.1; O2SAT 94–97
[2024-10-20] MEDS: IPRATROPIUM 0.5 MG/ALBUTEROL SULFATE 2.5 MG AMPUL.NEB 3 ML INHALATION ×3 (00:01→12:30)
[2024-10-20 06:34] LABS: Basophils Absolute Auto 0.02 K/mm3 (0.00-0.10); Basophils Percent Auto 0.1 % (0.0-1.0); Eosinophils Absolute Auto 0.01 K/mm3 (0.02-0.50); Eosinophils Percent Auto 0.1 % (1.0-6.0); Hematocrit 33.6 % (37.0-46.0); Hemoglobin 11.1 g/dL (12.4-15.3); Immature Granulocyte Absolute 0.18 K/mm3 (0.00-0.00); Immature Granulocyte Percent A 1.3 % (0.0-0.0); Lymphocytes Absolute Auto 1.18 K/mm3 (1.10-4.50); Lymphocytes Percent Auto 8.4 % (18.0-42.0); Mean Corpuscular Volume 93.9 fL (78.0-102.0); Mean Platelet Volume 9.6 fl (8.7-11.0); Monocytes Absolute Auto 1.06 K/mm3 (0.10-0.90); Monocytes Percent Auto 7.5 % (2.0-11.0); Neutrophils Absolute Auto 11.62 K/mm3 (1.70-7.20); Neutrophils Percent Auto 82.6 % (50.0-70.0); Platelet Count Result 278 K/mm3 (150-420); Red Blood Count 3.58 M/mm3 (4.70-6.10); Red Cell Distribution Width 14.4 % (11.6-14.4); White Blood Count 14.1 K/mm3 (4.8-10.8)
[2024-10-20 06:44] LABS: Alanine Aminotransferase 58 U/L (16-63); Albumin Level 2.8 g/dL (3.4-5.0); Alkaline Phosphatase 92 U/L (46-116); Anion Gap 13 mmol/L (4-12); Aspartate Amino Transferase 39 U/L (15-37); Bilirubin,Total 0.3 mg/dL (0.00-1.00); Blood Urea Nitrogen 9 mg/dL (7-18); Calcium 8.8 mg/dL (8.5-10.1); Carbon Dioxide 25 mmol/L (21-32); Chloride 108 mmol/L (98-108); Estimated CRCL calculation 64 ml/min; Estimated Glomerular Filt Rate > 60; Glucose 98 mg/dL (70-99); Osmolality Calculated 300 mOsm/kg (285-295); Potassium 3.2 mmol/L (3.5-5.1); Sodium 146 mmol/L (136-145); Total Protein 6.4 g/dL (6.4-8.2)
[2024-10-20] MEDS: guaiFENesin 12 HR 600 MG TABCR PO (09:05)
[2024-10-20] MEDS: oxyBUTYnin CHLORIDE 5 MG TABLET PO (09:05)
[2024-10-20] MEDS: ENOXAPARIN 40 MG/0.4 ML SYRINGE SUB-Q (09:06)
[2024-10-20] MEDS: levoFLOXacin TAB 500 MG, levoFLOXacin TAB 250 MG 750 MG PO (13:53)
--- NOTE | 2024-10-20 14:45 | PC.NURSE ---
Pt discharged to home with Cg. Discharge instructions reviewed with pt and cg. Medications reviewed as well as follow up doctor appointment. Blue folder with discharge information sent with him.
--- NOTE | 2024-10-21 10:28 | PC.NURSE ---
spoke with family for Emanuel, doing ok, didn't get mucinex filled due to pharmacy is out of, states he is better now no other questions regarding dc instructions
== END 2024-10-20 14:20 | disposition home or self-care (01) | DRG 191 ==
LOC: CHSED 19:42 → CHS2ND 21:11
PROVIDERS: Nurse Practitioner Acute Care; Admitting Provider Internal Medicine; Emergency Provider Family Medicine; Visit Provider Internal Medicine
DX: J44.1 Chronic obstructive pulmonary disease with (acute) exacerbation (principal); R65.10 Systemic inflammatory response syndrome (SIRS) of non-infectious origin without acute organ dysfunction; C61 Malignant neoplasm of prostate; E78.5 Hyperlipidemia, unspecified; E03.9 Hypothyroidism, unspecified; M48.061 Spinal stenosis, lumbar region without neurogenic claudication; F12.90 Cannabis use, unspecified, uncomplicated; F31.9 Bipolar disorder, unspecified; Z99.3 Dependence on wheelchair
CPT/HCPCS: 36415; 71045; 80048; 80053; 81001; 83735; 83880; 84443; 84484; 85025; 85610; 85652; 86140; 87040; 87086; 87637; 87641; 93005; 94640; 96361; 96365; 96366; 96367; 96372; 96375; 96376; 99285; A9270; G0378; J1650; J2543; J2919; J3370; J7030; J7512